=== PATIENT | female | born 1985 | race Caucasian/White ===

== ENCOUNTER 2018-04-13 04:11 | Inpatient (IN) | payer OTHER ==
[~2018-04-13] VITALS: Ht 165.1 cm; Wt 74.3 kg
[2018-04-13 04:15] VITALS: BP 128/78
[2018-04-13 05:00] LABS: BASOPHILS # (AUTO) 0.05 x10^3/uL (0-0.1); BASOPHILS % (AUTO) 1 % (0-1); EOSINOPHILS # (AUTO) 0.09 x10^3/uL (0-0.4); EOSINOPHILS % (AUTO) 1 % (1-7); LYMPHOCYTES # (AUTO) 2.05 x10^3/uL (1-3.4); LYMPHOCYTES % (AUTO) 21 % (22-44); MD NO; MEAN CORPUSCULAR HEMOGLOBIN 29.6 pg (27.0-34.8); MEAN CORPUSCULAR HGB CONC 34.3 g/dL (32.4-35.8); MEAN CORPUSCULAR VOLUME 86.2 fL (80-100); MEAN PLATELET VOLUME 7.9 fL (7.4-10.4); MONOCYTES # (AUTO) 0.58 x10^3/uL (0.2-0.8); MONOCYTES % (AUTO) 6 % (2-9); NEUTROPHILS % (AUTO) 71 % (42-75); PLATELET COUNT 252 x10^3/uL (130-400); RED BLOOD COUNT 4.44 x10^6/uL (3.82-5.3); RED CELL DISTRIBUTION WIDTH 13.6 % (9.6-15.2)
[2018-04-13] MEDS ORDERED: BETAMETHASONE 6 MG/ML, 5ML IM ONE ×2 (05:39→06:00)
[2018-04-13] MEDS ORDERED: TERBUTALINE 1 MG/ML, 1ML ONE (05:39)
[2018-04-13] MEDS: LACTATED RINGERS 1,000 ML IV SCH (05:45)
[2018-04-13] MEDS ORDERED: TERBUTALINE 1 MG/ML, 1ML SQ ONE (06:00)
[2018-04-13] MEDS ORDERED: DOCUSATE 100 MG CAPSULE ONE (19:10)
[2018-04-14] MEDS ORDERED: BETAMETHASONE 6 MG/ML, 5ML IM ONE (06:00)
[2018-04-14] MEDS: LACTATED RINGERS 1,000 ML IV SCH ×5 (06:00→22:00)
[2018-04-14 07:40] VITALS: BP 100/54
[2018-04-14] MEDS ORDERED: SODIUM CITRATE/CITRIC ACID 30 ML UDC ONE (07:53)
[2018-04-14] MEDS ORDERED: METOCLOPRAMIDE 5 MG/ML, 2ML ONE (07:53)
[2018-04-14] MEDS ORDERED: TERBUTALINE 1 MG/ML, 1ML ONE (07:54)
[2018-04-14 08:42] LABS: MICROSCOPIC NOT IND
[2018-04-14] MEDS ORDERED: TERBUTALINE 1 MG/ML, 1ML IV ONE (11:00)
[2018-04-14] MEDS ORDERED: NEWBORN KIT ONE (12:33)
[2018-04-14] MEDS ORDERED: METH500T98 PO (14:07)
[2018-04-14] MEDS ORDERED: PREN1TAB60 PO (14:07)
[2018-04-15] MEDS ORDERED: NEWBORN KIT ONE (03:55)
[2018-04-15] MEDS: LACTATED RINGERS 1,000 ML IV SCH ×3 (06:00→22:00)
[2018-04-15] MEDS ORDERED: DOCUSATE 100 MG CAPSULE ONE (08:58)
[2018-04-15] MEDS: PRENATAL VIT/IRON/FA 1 EACH TABLET PO SCH (09:00)
[2018-04-15] MEDS: DOCUSATE 100 MG CAPSULE PO PRN (09:21)
[2018-04-15 19:46] VITALS: BP 100/56
[2018-04-16 05:46] LABS: ALANINE AMINOTRANSFERASE 13 U/L (12-78); ALBUMIN 2.4 g/dL (3.4-5.0); ANION GAP 8 mmol/L (5-15); CHLORIDE 110 mmol/L (98-107); CREATININE 0.55 mg/dL (0.55-1.02)
[2018-04-16 05:49] LABS: ALKALINE PHOSPHATASE 99 U/L (45-117); BILIRUBIN,TOTAL 0.3 mg/dL (0.2-1.0); TOTAL PROTEIN 5.9 g/dL (6.4-8.2)
[2018-04-16] MEDS: LACTATED RINGERS 1,000 ML IV SCH ×2 (06:00→14:00)
[2018-04-16 08:10] VITALS: BP 104/58
[2018-04-16] MEDS ORDERED: PRENATAL VIT/IRON/FA 1 EACH TABLET ONE (08:36)
[2018-04-16] MEDS ORDERED: DOCUSATE 100 MG CAPSULE ONE ×2 (08:37→20:59)
[2018-04-16] MEDS: DOCUSATE 100 MG CAPSULE PO PRN ×2 (08:40→21:02)
[2018-04-16] MEDS: SODIUM CHLORIDE FLUSH 10ML SYR IVF SCH ×2 (08:40→21:00)
[2018-04-16] MEDS: PRENATAL VIT/IRON/FA 1 EACH TABLET PO SCH ×2 (08:40→09:00)
[2018-04-16 19:38] VITALS: BP 110/63
[2018-04-17] MEDS ORDERED: DOCUSATE 100 MG CAPSULE ONE (09:18)
[2018-04-17] MEDS ORDERED: PRENATAL VIT/IRON/FA 1 EACH TABLET ONE (09:18)
[2018-04-17] MEDS: SODIUM CHLORIDE FLUSH 10ML SYR IVF SCH (09:33)
[2018-04-17] MEDS: PRENATAL VIT/IRON/FA 1 EACH TABLET PO SCH (10:14)
[2018-04-17] MEDS: DOCUSATE 100 MG CAPSULE PO PRN (10:14)
[2018-04-17 11:25] VITALS: BP 116/78
== END 2018-04-17 11:30 | disposition home or self-care (01) | DRG 833 ==
LOC: LDOP 04:11 → LDIP 05:30 → OBSVTOIN 05:30
PROVIDERS: ADMIT Obstetrics & Gynecology Maternal & Fetal Medicine; ATTEND Obstetrics & Gynecology Maternal & Fetal Medicine
DX: O46.93 Antepartum hemorrhage, unspecified, third trimester (principal); Z3A.34 34 weeks gestation of pregnancy; O62.9 Abnormality of forces of labor, unspecified
CPT/HCPCS: 36415; 76805; 76815; 80053; 81003; 85025; 86850; 86900; 87077; 87081; 87086; 96372; 99285; G0378; J0702; J3105; J7120

== ENCOUNTER 2018-05-09 14:04 | Outpatient (CLI) | payer OTHER ==
[~2018-05-09] VITALS: Ht 165.1 cm; Wt 77.3 kg
[~2018-05-09 14:04] MED LIST: METH500T98 PO; PREN1TAB60 PO
[2018-05-09 14:21] VITALS: BP 121/67
== END 2018-05-09 15:05 | disposition home or self-care (01) ==
LOC: LDOP 14:04
PROVIDERS: ATTEND Obstetrics & Gynecology Maternal & Fetal Medicine
DX: O46.8X3 Other antepartum hemorrhage, third trimester (principal); Z3A.37 37 weeks gestation of pregnancy
CPT/HCPCS: 59025; 99211; G0463

== ENCOUNTER 2018-05-11 09:21 | Inpatient (IN) | payer OTHER ==
[~2018-05-11] VITALS: Ht 165.1 cm; Wt 77.0 kg
[2018-05-11] MEDS ORDERED: OXYTOCIN 30U/ 0.9% NaCL 500ML 500 ML IV ONE (23:13)
[2018-05-11] MEDS ORDERED: D5%-LACTATED RINGERS 1,000 ML IV SCH (23:13)
[2018-05-11] MEDS ORDERED: OXYTOCIN 30U/ 0.9% NaCL 500ML 500 ML ONE (23:15)
[2018-05-11] MEDS ORDERED: NEWBORN KIT ONE (23:15)
[2018-05-11] MEDS: LACTATED RINGERS 1,000 ML IV SCH (23:20)
[2018-05-11] MEDS ORDERED: TERBUTALINE 1 MG/ML, 1ML IVPush PRN (23:30)
[2018-05-11] MEDS ORDERED: CALCIUM CARBONATE 500 MG TAB.CHEW PO PRN (23:30)
[2018-05-11] MEDS ORDERED: MISOPROSTOL 25 MCG TABLET VG PRN (23:30)
[2018-05-11] MEDS ORDERED: FENTANYL PF 100 MCG/2ML IVPush PRN (23:30)
[2018-05-11] MEDS ORDERED: ONDANSETRON 2MG/ML, 2ML IVPush PRN (23:30)
[2018-05-11] MEDS ORDERED: FENTANYL PF 100 MCG/2ML IV PRN (23:30)
[2018-05-11] MEDS ORDERED: METOCLOPRAMIDE 5 MG/ML, 2ML IVPush PRN (23:30)
[2018-05-11 23:40] LABS: BASOPHILS # (AUTO) 0.12 x10^3/uL (0-0.1); BASOPHILS % (AUTO) 1 % (0-1); EOSINOPHILS % (AUTO) 1 % (1-7); LYMPHOCYTES # (AUTO) 2.02 x10^3/uL (1-3.4); LYMPHOCYTES % (AUTO) 20 % (22-44); MD NO; MEAN CORPUSCULAR HEMOGLOBIN 29.4 pg (27.0-34.8); MEAN CORPUSCULAR HGB CONC 34.1 g/dL (32.4-35.8); MEAN CORPUSCULAR VOLUME 86.2 fL (80-100); MEAN PLATELET VOLUME 8.1 fL (7.4-10.4); MONOCYTES # (AUTO) 0.49 x10^3/uL (0.2-0.8); MONOCYTES % (AUTO) 5 % (2-9); NEUTROPHILS # (AUTO) 7.46 x10^3/uL (1.8-6.8); NEUTROPHILS % (AUTO) 73 % (42-75); PLATELET COUNT 250 x10^3/uL (130-400); RED CELL DISTRIBUTION WIDTH 13.4 % (9.6-15.2)
[2018-05-11 23:48] VITALS: BP 123/70
[2018-05-12] MEDS ORDERED: FENTANYL/BUPIV./NS/PF 250 ML EPIDCONT SCH ×2 (01:37→02:00)
[2018-05-12] MEDS ORDERED: ONDANSETRON 2MG/ML, 2ML IVPush PRN (02:00)
[2018-05-12] MEDS ORDERED: EPHEDRINE 50 MG/ML, 1ML IVPush PRN ×2 (02:00)
[2018-05-12] MEDS ORDERED: LACTATED RINGERS 1,000 ML IVBOLUS PRN ×2 (02:00)
[2018-05-12] MEDS ORDERED: LACTATED RINGERS 1,000 ML IV SCH ×2 (02:00→18:25)
[2018-05-12] MEDS ORDERED: TERBUTALINE 1 MG/ML, 1ML ONE ×2 (02:01→02:03)
[2018-05-12] MEDS: LACTATED RINGERS 1,000 ML IV SCH ×5 (03:00→20:39)
[2018-05-12] MEDS ORDERED: SODIUM CITRATE/CITRIC ACID 30 ML UDC PO ONE ×2 (03:00→18:30)
[2018-05-12] MEDS ORDERED: METOCLOPRAMIDE 5 MG/ML, 2ML ONE ×2 (03:14→18:28)
[2018-05-12] MEDS ORDERED: SODIUM CITRATE/CITRIC ACID 30 ML UDC ONE ×2 (03:14→18:28)
[2018-05-12] MEDS ORDERED: FENTANYL PF 100 MCG/2ML ONE ×3 (03:27→21:10)
[2018-05-12] MEDS ORDERED: BUPIVACAINE 0.25% ONE (03:27)
[2018-05-12] MEDS ORDERED: FENTANYL PF 500 MCG, BUPIVACAINE/PF 0.5%, 30ML 62.5 ML in SODIUM CHLORIDE 0.9% 177.5 ML EPIDCONT SCH (03:30)
[2018-05-12] MEDS ORDERED: ONDANSETRON 2MG/ML, 2ML ONE (03:54)
[2018-05-12] MEDS ORDERED: OXYTOCIN 30U/ 0.9% NaCL 500ML 500 ML IV SCH (18:25)
[2018-05-12] MEDS ORDERED: LACTATED RINGERS 1,000 ML IVBOLUS ONE (18:30)
[2018-05-12] MEDS: OXYTOCIN 30U/ 0.9% NaCL 500ML 500 ML IV SCH (18:32)
[2018-05-12] MEDS ORDERED: METHYLERGONOVINE 0.2 MG/ML IM PRN (19:00)
[2018-05-12] MEDS ORDERED: DIPH,PERTUSS(ACELL),TET VAC/PF NC IM-VACC PRN (19:00)
[2018-05-12] MEDS ORDERED: MISOPROSTOL 200 MCG TABLET PR PRN (19:00)
[2018-05-12] MEDS ORDERED: CARBOPROST TROMETHAMINE 250 MCG/ML, 1ML IM PRN (19:00)
[2018-05-12] MEDS ORDERED: morphine SULFATE 10 MG/ML, 1ML IVPush PRN (19:00)
[2018-05-12] MEDS ORDERED: ONDANSETRON 2MG/ML, 2ML IV PRN (19:00)
[2018-05-12] MEDS ORDERED: MEASLES,MUMPS&RUBELLA VACC/PF 0.5 ML SQ-VACC PRN (19:00)
[2018-05-12] MEDS ORDERED: OXYTOCIN 10 UNITS/ML, 1ML ONE (19:15)
[2018-05-12] MEDS ORDERED: CEFAZOLIN 1,000 MG ONE (19:15)
[2018-05-12] MEDS ORDERED: LIDOCAINE-MPF 2% ,5ML ONE (19:34)
[2018-05-12] MEDS ORDERED: morphine SULFATE 10 MG/ML, 1ML ONE (19:36)
[2018-05-12] MEDS ORDERED: OXYcodone 5 MG/5 ML ORAL.SOL UDC ONE (20:42)
[2018-05-12] MEDS ORDERED: OXYcodone 5 MG/5 ML ORAL.SOL UDC PO PRN (21:00)
[2018-05-12] MEDS: FENTANYL PF 100 MCG/2ML IVPush PRN ×2 (21:19→21:29)
[2018-05-12] MEDS ORDERED: KETOROLAC 30 MG/1 ML ONE (21:41)
[2018-05-12] MEDS: KETOROLAC 30 MG/1 ML IV SCH (21:44)
[2018-05-12 22:20] VITALS: BP 132/75
[2018-05-13 00:15] VITALS: BP 115/71
[2018-05-13] MEDS: LACTATED RINGERS 1,000 ML IV SCH ×5 (01:44→18:32)
[2018-05-13] MEDS: OXYcodone/APAP 5/325MG TABLET PO PRN (02:23)
[2018-05-13] MEDS: KETOROLAC 30 MG/1 ML IV SCH ×4 (03:45→22:34)
[2018-05-13 04:08] VITALS: BP 103/61
[2018-05-13] MEDS: OXYTOCIN 30U/ 0.9% NaCL 500ML 500 ML IV SCH ×2 (04:32→14:32)
[2018-05-13] MEDS: OXYcodone IR 5MG TABLET PO PRN ×4 (06:07→20:32)
[2018-05-13 06:41] LABS: BASOPHILS # (AUTO) 0.05 x10^3/uL (0-0.1); BASOPHILS % (AUTO) 0 % (0-1); EOSINOPHILS # (AUTO) 0.04 x10^3/uL (0-0.4); EOSINOPHILS % (AUTO) 0 % (1-7); LYMPHOCYTES % (AUTO) 9 % (22-44); MD NO; MEAN CORPUSCULAR HEMOGLOBIN 29.4 pg (27.0-34.8); MEAN CORPUSCULAR VOLUME 86.5 fL (80-100); MEAN PLATELET VOLUME 7.4 fL (7.4-10.4); MONOCYTES # (AUTO) 0.55 x10^3/uL (0.2-0.8); MONOCYTES % (AUTO) 4 % (2-9); NEUTROPHILS # (AUTO) 11.77 x10^3/uL (1.8-6.8); NEUTROPHILS % (AUTO) 86 % (42-75); PLATELET COUNT 199 x10^3/uL (130-400); RED BLOOD COUNT 3.37 x10^6/uL (3.82-5.3); RED CELL DISTRIBUTION WIDTH 14.4 % (9.6-15.2)
[2018-05-13 07:30] VITALS: BP 109/66
[2018-05-13] MEDS: PRENATAL VIT/IRON/FA 1 EACH TABLET PO SCH (09:00)
[2018-05-13] MEDS: DOCUSATE 100 MG CAPSULE PO PRN ×2 (10:05→20:31)
[2018-05-13] MEDS: ACETAMINOPHEN 325 MG TABLET PO PRN ×2 (10:05→15:17)
[2018-05-13] MEDS: SIMETHICONE 80 MG CHEW TAB PO PRN ×2 (10:05→20:31)
[2018-05-13 13:00] VITALS: BP 107/68
[2018-05-13 16:10] VITALS: BP 112/70
[2018-05-13 20:15] VITALS: BP 98/60
[2018-05-14] MEDS: LACTATED RINGERS 1,000 ML IV SCH ×4 (00:32→10:32)
[2018-05-14] MEDS: OXYTOCIN 30U/ 0.9% NaCL 500ML 500 ML IV SCH ×2 (00:32→10:32)
[2018-05-14] MEDS: KETOROLAC 30 MG/1 ML IV SCH ×3 (04:22→16:48)
[2018-05-14] MEDS: OXYcodone IR 5MG TABLET PO PRN (04:23)
[2018-05-14] MEDS: ACETAMINOPHEN 325 MG TABLET PO PRN (04:23)
[2018-05-14] MEDS: OXYcodone/APAP 5/325MG TABLET PO PRN ×5 (07:23→20:50)
[2018-05-14] MEDS: DOCUSATE 100 MG CAPSULE PO PRN ×2 (07:23→20:50)
[2018-05-14] MEDS: PRENATAL VIT/IRON/FA 1 EACH TABLET PO SCH (07:23)
[2018-05-14] MEDS: SIMETHICONE 80 MG CHEW TAB PO PRN ×2 (07:23→12:01)
[2018-05-14 07:45] VITALS: BP 108/60
[2018-05-14 19:33] VITALS: BP 108/64
[2018-05-14] MEDS: IBUPROFEN 600 MG TABLET PO PRN (23:40)
[2018-05-15] MEDS: OXYcodone/APAP 5/325MG TABLET PO PRN ×3 (02:23→14:35)
[2018-05-15] MEDS: IBUPROFEN 600 MG TABLET PO PRN ×2 (05:30→12:40)
[2018-05-15 08:35] VITALS: BP 119/66
[2018-05-15] MEDS: DOCUSATE 100 MG CAPSULE PO PRN (08:48)
[2018-05-15] MEDS: PRENATAL VIT/IRON/FA 1 EACH TABLET PO SCH (08:48)
[2018-05-15] MEDS ORDERED: IBUP-1222 PO (13:32)
[2018-05-15] MEDS ORDERED: OXYC-302 PO (13:33)
== END 2018-05-15 13:45 | disposition home or self-care (01) | DRG 786 ==
LOC: LDIP 23:03 → 2NW 05-12 22:14
PROVIDERS: ADMIT Obstetrics & Gynecology Maternal & Fetal Medicine; ATTEND Obstetrics & Gynecology Maternal & Fetal Medicine
PROC: 10D00Z1 Extraction of Products of Conception, Low, Open Approach (ICD-10-PCS; principal; 2018-05-12)
DX: O76 Abnormality in fetal heart rate and rhythm complicating labor and delivery (principal); O45.93 Premature separation of placenta, unspecified, third trimester; O62.1 Secondary uterine inertia; Z37.0 Single live birth; Z3A.38 38 weeks gestation of pregnancy; Z82.3 Family history of stroke; Z83.3 Family history of diabetes mellitus; Z88.8 Allergy status to other drugs, medicaments and biological substances
CPT/HCPCS: 36415; 82803; 85025; 86850; 86900; 86923; G0378; J0690; J1885; J2405; J3010; J3490; J2270; J2590; J3105; J7120